=== PATIENT | female | born 1985 | race Caucasian/White ===

== ENCOUNTER 2018-05-05 04:06 | Emergency (ER) | payer SELFPAY ==
[2018-05-05 04:08] VITALS: BP 155/115
--- NOTE | 2018-05-05 04:15 | ER Report ---
History and Physical Time Seen By MD: 04:11 HPI/ROS CHIEF COMPLAINT: Suicidal ideation/attempt HISTORY OF PRESENT ILLNESS: 33 year-old female traveling back from [place] to [place] after a for her [id number]. Patient was drinking tonight. Her and her got into an argument. They broke up. Patient took a pocket knife from her 's pants and went into the bathroom, stating she was going to end it. She was found with superficial cuts on her left arm. Patient has a reported history of 2 weeks ago locking herself in the bathroom attempting to drown herself in the bathtub per . Patient did not receive treatment at that time. Patient admits to some alcohol last night but denies drugs. Patient with a history of ADHD on Vyvanse. Patient reports her last tetanus vaccine was 2013. REVIEW OF SYSTEMS: Respiratory: No cough, no dyspnea. Cardiovascular: No chest pain, no palpitations. Gastrointestinal: No vomiting, no abdominal pain. Musculoskeletal: No back pain. Allergies: Coded Allergies: codeine (Verified Allergy, Mild, 05/05/18) morphine (Verified Allergy, Mild, 05/05/18) Home Meds Reported Medications Cetirizine Hcl (ZYRTEC) 10 Mg Capsule, 10 MG PO QDAY, CAPSULE 05/05/18 Albuterol Sulfate 90 Mcg/Act (PROAIR HFA 90 MCG/ACT) 8.5 Gm Hfa.aer.ad, 1-2 PUFF IH 3-4XD, INHALER 05/05/18 Montelukast Sodium (SINGULAIR) 10 Mg Tablet, 1 TAB PO QDAY, TAB 05/05/18 Lisdexamfetamine Dimesylate (VYVANSE) 20 Mg Capsule, 20 MG PO QDAY, CAPSULE 05/05/18 Past Medical/Surgical History Asthma, allergies ADHD, denies previous history of mental health disorder Reviewed Nurses Notes: Yes Old Medical Records Reviewed: Yes Constitutional Vital Sign - Last 24 Hours 05/05/18 04:08 Temp 97.7 Pulse 113 Resp 20 B/P (MAP) 155/115 Pulse Ox 97 O2 Delivery Room Air Physical Exam Vital signs stable, mild tachycardia, mild elevation of blood pressure, afebrile , pulse ox normal General Appearance: The patient is alert, has no immediate need for airway protection and no current signs of toxicity. HEENT: Pupils equal and round no injection. Oropharynx without redness or exudate, mucous membranes are moist Respiratory: Chest is non tender, lungs are clear to auscultation. Cardiac: regular rate and rhythm Gastrointestinal: Abdomen is soft and non tender, no masses, bowel sounds normal. Musculoskeletal: Neck: Neck is supple and non tender. No thyromegaly Extremities have full range of motion and are non tender. There are numerous approximately 20 superficial transverse lacerations on both surfaces of the left forearm none requiring sutures Skin: No rashes or lesions. DIFFERENTIAL DIAGNOSIS: After history and physical exam differential diagnosis was considered for depression including functional and major depression, situational depression, medication side effect, suicidal ideation, suicidal attempt , drugs and alcohol abuse. Medical Decision Making Data Points Result Diagram: 05/05/1844905/05/18449 Laboratory Hematology Test 05/05/18 04:25 05/05/18 04:50 Urine Color Straw Urine Clarity Clear Urine pH 5.0 pH (4.8-9.5) Urine Specific [place] 1.004 Urine Protein Negative mg/dL (NEGATIVE) Urine Glucose (UA) Negative mg/dL (NEGATIVE) Urine Ketones Negative mg/dL (NEGATIVE) Urine Blood Small (NEGATIVE) Urine Nitrite Negative (NEGATIVE) Urine Bilirubin Negative (NEGATIVE) Urine Urobilinogen Negative mg/dL (0.2-1.9) Urine Leukocyte Esterase Negative (NEGATIVE) Urine RBC <1 /HPF (0-2/HPF) Urine WBC <1 /HPF (0-5/HPF) Urine Squamous Epithelial Cells Moderate /LPF (</=FEW) Urine Bacteria Negative /HPF (NONE-FEW) Urine Mucus None /HPF (NONE-FEW) Urine HCG, Qualitative Negative (NEGATIVE) Urine Opiates Screen Negative Urine Barbiturates Screen Negative Ur Tricyclic Antidepressants Screen Negative Urine Phencyclidine Screen Negative Urine Amphetamines Screen Positive Urine Benzodiazepines Screen Negative Urine Cocaine Screen Negative Urine Cannabinoids Screen Negative Red Blood Count 4.64 M/uL (4.17-5.56) Mean Corpuscular Volume 95.3 fL (80.0-96.0) Mean Corpuscular Hemoglobin 33.7 pg (26.0-33.0) Mean Corpuscular Hemoglobin Concent 35.3 g/dL (32.0-36.0) Red Cell Distribution Width 12.1 % (11.5-14.5) Mean Platelet Volume 7.5 fL (7.2-11.1) Neutrophils (%) (Auto) 51.8 % (39.4-72.5) Lymphocytes (%) (Auto) 40.4 % (17.6-49.6) Monocytes (%) (Auto) 5.0 % (4.1-12.4) Eosinophils (%) (Auto) 1.6 % (0.4-6.7) Basophils (%) (Auto) 1.2 % (0.3-1.4) Nucleated RBC Relative Count (auto) 0.0 /100WBC Neutrophils # (Auto) 3.3 K/uL (2.0-7.4) Lymphocytes # (Auto) 2.6 K/uL (1.3-3.6) Monocytes # (Auto) 0.3 K/uL (0.3-1.0) Eosinophils # (Auto) 0.1 K/uL (0.0-0.5) Basophils # (Auto) 0.1 K/uL (0.0-0.1) Nucleated RBC Absolute Count (auto) 0.00 K/uL Sodium Level 146 mmol/L (137-145) Potassium Level 3.9 mmol/L (3.5-5.0) Chloride Level 106 mmol/L (98-107) Carbon Dioxide Level 24 mmol/L (22-31) Blood Urea Nitrogen 8 mg/dl (7-18) Creatinine 0.50 mg/dl (0.52-1.04) Glomerular Filtration Rate Calc > 60.0 Random Glucose 108 mg/dl (75-110) Calcium Level 9.1 mg/dl (8.4-10.2) Magnesium Level 2.0 mg/dl (1.7-2.2) Total Bilirubin 0.2 mg/dl (0.2-1.3) Aspartate Amino Transf (AST/SGOT) 23 U/L (0-35) Alanine Aminotransferase (ALT/SGPT) 23 U/L (0-56) Alkaline Phosphatase 62 U/L (0-126) Total Protein 7.5 g/dl (6.3-8.2) Albumin 4.6 g/dl (3.5-5.0) Salicylates Level < 10 mg/L Salicylate Last Dose Date unk Acetaminophen Level < 10 ug/ml Serum Alcohol 129 mg/dl Chemistry Test 05/05/18 04:25 05/05/18 04:50 Urine Color Straw Urine Clarity Clear Urine pH 5.0 pH (4.8-9.5) Urine Specific [place] 1.004 Urine Protein Negative mg/dL (NEGATIVE) Urine Glucose (UA) Negative mg/dL (NEGATIVE) Urine Ketones Negative mg/dL (NEGATIVE) Urine Blood Small (NEGATIVE) Urine Nitrite Negative (NEGATIVE) Urine Bilirubin Negative (NEGATIVE) Urine Urobilinogen Negative mg/dL (0.2-1.9) Urine Leukocyte Esterase Negative (NEGATIVE) Urine RBC <1 /HPF (0-2/HPF) Urine WBC <1 /HPF (0-5/HPF) Urine Squamous Epithelial Cells Moderate /LPF (</=FEW) Urine Bacteria Negative /HPF (NONE-FEW) Urine Mucus None /HPF (NONE-FEW) Urine HCG, Qualitative Negative (NEGATIVE) Urine Opiates Screen Negative Urine Barbiturates Screen Negative Ur Tricyclic Antidepressants Screen Negative Urine Phencyclidine Screen Negative Urine Amphetamines Screen Positive Urine Benzodiazepines Screen Negative Urine Cocaine Screen Negative Urine Cannabinoids Screen Negative White Blood Count 6.3 k/uL (4.5-11.0) Red Blood Count 4.64 M/uL (4.17-5.56) Hemoglobin 15.6 g/dL (12.0-16.0) Hematocrit 44.3 % (34.0-47.0) Mean Corpuscular Volume 95.3 fL (80.0-96.0) Mean Corpuscular Hemoglobin 33.7 pg (26.0-33.0) Mean Corpuscular Hemoglobin Concent 35.3 g/dL (32.0-36.0) Red Cell Distribution Width 12.1 % (11.5-14.5) Platelet Count 253 K/uL (150-450) Mean Platelet Volume 7.5 fL (7.2-11.1) Neutrophils (%) (Auto) 51.8 % (39.4-72.5) Lymphocytes (%) (Auto) 40.4 % (17.6-49.6) Monocytes (%) (Auto) 5.0 % (4.1-12.4) Eosinophils (%) (Auto) 1.6 % (0.4-6.7) Basophils (%) (Auto) 1.2 % (0.3-1.4) Nucleated RBC Relative Count (auto) 0.0 /100WBC Neutrophils # (Auto) 3.3 K/uL (2.0-7.4) Lymphocytes # (Auto) 2.6 K/uL (1.3-3.6) Monocytes # (Auto) 0.3 K/uL (0.3-1.0) Eosinophils # (Auto) 0.1 K/uL (0.0-0.5) Basophils # (Auto) 0.1 K/uL (0.0-0.1) Nucleated RBC Absolute Count (auto) 0.00 K/uL Glomerular Filtration Rate Calc > 60.0 Calcium Level 9.1 mg/dl (8.4-10.2) Magnesium Level 2.0 mg/dl (1.7-2.2) Total Bilirubin 0.2 mg/dl (0.2-1.3) Aspartate Amino Transf (AST/SGOT) 23 U/L (0-35) Alanine Aminotransferase (ALT/SGPT) 23 U/L (0-56) Alkaline Phosphatase 62 U/L (0-126) Total Protein 7.5 g/dl (6.3-8.2) Albumin 4.6 g/dl (3.5-5.0) Salicylates Level < 10 mg/L Salicylate Last Dose Date unk Acetaminophen Level < 10 ug/ml Serum Alcohol 129 mg/dl Toxicology Test 05/05/18 04:25 05/05/18 04:50 Urine Opiates Screen Negative Urine Barbiturates Screen Negative Ur Tricyclic Antidepressants Screen Negative Urine Phencyclidine Screen Negative Urine Amphetamines Screen Positive Urine Benzodiazepines Screen Negative Urine Cocaine Screen Negative Urine Cannabinoids Screen Negative Salicylates Level < 10 mg/L Salicylate Last Dose Date unk Acetaminophen Level < 10 ug/ml Serum Alcohol 129 mg/dl Urinalysis Test 05/05/18 04:25 Urine Color Straw Urine Clarity Clear Urine pH 5.0 pH (4.8-9.5) Urine Specific [place] 1.004 Urine Protein Negative mg/dL (NEGATIVE) Urine Glucose (UA) Negative mg/dL (NEGATIVE) Urine Ketones Negative mg/dL (NEGATIVE) Urine Blood Small (NEGATIVE) Urine Nitrite Negative (NEGATIVE) Urine Bilirubin Negative (NEGATIVE) Urine Urobilinogen Negative mg/dL (0.2-1.9) Urine Leukocyte Esterase Negative (NEGATIVE) Urine RBC <1 /HPF (0-2/HPF) Urine WBC <1 /HPF (0-5/HPF) Urine Squamous Epithelial Cells Moderate /LPF (</=FEW) Urine Bacteria Negative /HPF (NONE-FEW) Urine Mucus None /HPF (NONE-FEW) Urine HCG, Qualitative Negative (NEGATIVE) ED Course/Re-evaluation ED Course Patient was admitted to an examination room. H&P was done. The differential diagnoses was considered. On clinical examination. Patient's alert and responsive. Patient has numerous superficial cutting moseley on her left arm. None of them appear to require suturing. Her tetanus status is updated. Diagnostic evaluation is undertaken. Her tox screen is positive for amphetamines, likely secondary to her Vyvanse. Patient is relatively high risk. She has a history 2 weeks ago of a similar suicidal gesture. Tidal 25 evaluation is completed. I think patient is very high risk in the senior care needs to be upheld. 05/05/2018 5:25:50 am case was discussed with Dr. Lovett psychiatrist on-call, who accepts the patient to [facility]. Decision to Disposition Date: May 05, 2018 Decision to Disposition Time: 04:32 Depart Departure Latest Vital Signs Vital Signs Date Time Temp Pulse Resp B/P (MAP) Pulse Ox O2 Delivery O2 Flow Rate FiO2 05/05/18 04:08 97.7 113 20 155/115 97 Room Air Impression: Primary Impression: Suicidal ideation Additional Impressions: Alcohol intoxication Deliberate self-cutting Condition: Improved Disposition: XFER TO [facility] Title 25 Evaluation Date of Report: May 05, 2018 Examiner: Dr. Koko Lam Patient Detained By: Law Enforcement 24hr Mental Health Eval By: Dr. Koko Lam Date Patient Detained: May 05, 2018 Time Patient Detained: 04:05 Date Custodial Expires: May 10, 2018 Time Custodial Expires: 04:05 Legal Status: Police Hold: No Legal Status: Relationship: Legal Status: Residence: Other Assessment Data Provided By: Patient, Law Enforcement, Family Member(s) Chief Complaint: Suicidal ideation/attempt HPI/ROS: 33-year-old female staying in a hotel in town with her . They had an argument after consuming alcohol. Patient. Patient grabbed her 's pocket knife out of his pants and went into the bathroom, told him that she was going to end it. She proceeded to cut some superficial moseley into her arm. reports that 2 weeks ago. She did a similar behavior, but attempted to drown herself in a bathtub full of water with a possible overdose. Patient at this time is denying suicidal ideation after being brought to the ER. called 911 to the hotel room. Patient admits to just a couple of alcoholic drinks earlier denies other drug ingestion. Risk Formulation: Patient did self cutting tonight which is a high risk behavior. Current Dangerous Risk Assess: Current Suicide Ideation Current Risk Summary: Moderate to high risk emergency senior care will be upheld Past Dangerous Risk Assess: Suicide Ideation-last 6mo Problem Qualifiers Additional Impressions: Alcohol intoxication Complication of substance-induced condition: uncomplicated Qualified Codes: F10.920 - Alcohol use, unspecified with intoxication, uncomplicated KOKO LAM DO May 05, 2018 04:15
[2018-05-05] MEDS ORDERED: CETI10CA8 PO (04:21)
[2018-05-05] MEDS ORDERED: MONT10TA PO (04:21)
[2018-05-05] MEDS ORDERED: ALBU8.5H IH (04:21)
[2018-05-05] MEDS ORDERED: LISD20CA4 PO (04:21)
[2018-05-05] MEDS ORDERED: DIPHTH/TETANUS/ACEL. PERTUSSIS IM ONLY ONE (04:50)
[2018-05-05 05:06] LABS: PLATELET COUNT, AUTOMATED 253 K/uL (150-450)
== END 2018-05-05 06:00 ==
LOC: ER 04:08
DX: T14.91XA Suicide attempt, initial encounter (principal); F15.10 Other stimulant abuse, uncomplicated; F10.920 Alcohol use, unspecified with intoxication, uncomplicated; X78.1XXA Intentional self-harm by knife, initial encounter
CPT/HCPCS: 36415; 80305; 80320; 80329; 81001; 81025; 82040; 82247; 82310; 82374; 82435; 82565; 82947; 83735; 84075; 84132; 84155; 84295; 84443; 84450; 84460; 84520; 85025; 99284

== ENCOUNTER 2018-05-05 05:42 | Inpatient (IN) | payer SELFPAY ==
[~2018-05-05 05:42] MED LIST: ALBU8.5H IH; CETI10CA8 PO; LISD20CA4 PO; MONT10TA PO
[2018-05-05] MEDS ORDERED: NICOTINE INH SYSTEM 10 MG/INH INH PRN (06:20)
[2018-05-05] MEDS ORDERED: ACETAMINOPHEN 325 MG TAB PO PRN (06:20)
[2018-05-05] MEDS ORDERED: MAG HYD/AL HYD/SIMETH 30ML UDC PO PRN (06:20)
[2018-05-05 06:32] VITALS: BP 141/98
[2018-05-05] MEDS: MULTIVITAMINS TAB PO SCH (09:00)
--- NOTE | 2018-05-05 10:56 | BHS - Psychiatric Evaluation ---
ER - Title 25 MHE Evaluation Title 25 Evaluation Patient Detained By: Physician (Dr. clarissa lopez), Law Enforcement Referral Source: Professional: Physician and law enforcement Date Patient Detained: May 05, 2018 Time Patient Detained: 04:05 Date Group Home Expires: May 10, 2018 Time Group Home Expires: 04:05 Legal Status: Police Hold: No Legal Status: Residence: Other Assessment Data Provided By: Patient, Law Enforcement, Other Source ([facility] Professional ) HPI/ROS: From Dr. Clarissa Lopez, ER Physician, "Patient has numerous superficial cutting moseley on her left arm. None of them appear to require suturing. 33-year-old female staying in a hotel in town with her . They had an argument after consuming alcohol. Patient grabbed her 's pocket knife out of his pants and went into the bathroom, told him that she was going to end it. reports that 2 weeks ago. She did a similar behavior, but attempted to drown herself in a bathtub full of water with a possible overdose. Patient at this time is denying suicidal ideation after being brought to the ER. called 911 to the hotel room. Patient admits to just a couple of alcoholic drinks earlier denies other drug ingestion. Her tox screen is positive for amphetamines, likely secondary to her Vyvanse. Patient is relatively high risk. She has a history 2 weeks ago of a similar suicidal gesture. Title 25 evaluation is completed. I think patient is very high risk in the custodial needs to be upheld. Admit due to SI or Attempt: Yes Suicide Plan: Has Plan with Access Alcohol or Drugs Involved: Yes (Alcohol and amphetamines) Is Patient Info Reliable: No (Patient denies suicidal ideation that was witnessed just previously.) Is Collateral Info Reliable: Yes (3-81 and patient's concerned .) Current Home Psych Meds: Reports none. Mental Status Exam General Appearance: Well Groomed, Good Eye Contact, Cooperative, Polite, Good Interaction Speech: Clear Mood: Dysthmic/Depressed (Very tearful) Affect: Flat Thought Process: Goal Directed Thought Content: Suicidal Ideation (Denies) Cognition: Alert & Oriented-Person, Alert & Oriented-Place Memory: Immediate, Recent Insight Judgment: Poor Sleep: Hypersomnia Hallucinations: Denies Delusions: Denies Current Risk & History Current Dangerous Risk Assessm: Current Suicide Ideation (As recently as this morning.) Past Dangerous Risk Assessm: Self-Injurious Behaviors (Collateral report from is patient was cutting in a bathtub two weeks ago.) Sequelae of Substance Abuse: Patient denied drug ingestion but was positive in her toxicity screen for amphetamines. Previous Suicide Attempt: Past - Low Lethality (Patient report similar suicidal behaviors two weeks ago.) Previous Psychiatric Illness: No (Unknown at this time.) Previous Psychiatric Treatment: No (Unknown at this time) Risk Assessment & Disposition Evaluated Risk Assessment: Dr. Lopez indicated he believed risk to be high. Patient self harm behavior while intoxicated highly lethal, and she needs supports in place. Meets Mental Illness Req.: Yes Meets Dangerousness Req.: Yes Emergency Group Home to be: Upheld Decision Comment: Please see Dr. Lopez's HPI above. Date of Decision: May 05, 2018 Time of Decision: 04:05 Patient is Medically Stable at: Yes Disposition: [facility]RISS ISAACS LPC May 05, 2018 10:56
[2018-05-05 13:25] VITALS: BP 139/88
[2018-05-05] MEDS ORDERED: ALBUTEROL 8 GM INHALER INH PRN (13:25)
[2018-05-05] MEDS: MONTELUKAST SODIUM 10 MG TAB PO SCH (15:28)
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
[2018-05-05 23:54] VITALS: BP 129/73
[2018-05-06] MEDS: MULTIVITAMINS TAB PO SCH (08:17)
[2018-05-06] MEDS: MONTELUKAST SODIUM 10 MG TAB PO SCH (08:53)
[2018-05-06 09:15] VITALS: BP 146/83
[2018-05-06] MEDS: FLUoxetine HCL 20 MG CAP PO SCH (09:52)
--- NOTE | 2018-05-06 16:05 | BHS Progress Note ---
S - Subjective Progress Notes Subjective Pt seen in conference room with staff. Pt feeling "much better" today. She and had a long talk last night, both tearful, both deciding that they want to quit alcohol together. We talked a lot about AA, out-patient therapy, coping with urges to drink, couples therapy etc. Pt highly motivated. Pt also reporting long-standing hx of anxiety and dysphoric mood. She would like to try Prozac, and we agreed to a trial of 20 mg q am. Pt denies SI. Tentative discharge in AM if she continues to be stable and free of SI. Suicidal Ideation: None Homicidal Ideation: None S - Objective Physical Exam Vital Signs Vital Signs 05/05/18 05/06/18 23:54 09:15 Temp 97.4 Pulse 74 Resp 15 B/P (MAP) 146/83 (104) Pulse Ox 93 O2 Delivery Room Air Muscle Strength and Tone: WNL Gait and Station: Steady [facility] Medications Reviewed: Side Effects, Benefits of Medication, Risks Allergies Reviewed: Yes Mental Status Exam General Appearance: Casual, Well Groomed, Good Eye Contact, Cooperative, Polite , Good Interaction Speech: Clear, Spontaneous, Normal Rate, Normal Rhythm, Normal Volume, Normal Tone Mood: Dysthmic/Depressed (better today but still some dysphoria) Affect: Calm, Flat, Anxious Thought Process: Organized, Logical, Goal Directed Thought Content: No Suicidal Ideation, No Homicidal Ideation, No Delusions, No Auditory Halllucinations, No Visual Hallucinations, No Thought Broadcasting, No Ideas of Reference, No Obsessions, No Compulsions, No Other Sensorium: Clear Cognition: Alert & Oriented-Person, Alert & Oriented-Place, Alert & Oriented- Time, [id number] Memory: Immediate, Recent, Remote Intelligence: Average Insight Judgment: Fair [facility] Assessment and Plan [id number] Encounter Date: May 06, 2018 [id number] Encounter Time: 09:00 [facility] Plan: Admit to Unit, Necessary Precautions, Individual/Group Therapy, Admin /Titrate Meds, Educate Patient Tobacco Medications: Started Multpiple Antipsychotics Used: No Problems: (1) Alcohol use disorder, severe, dependence (2) Substance induced mood disorder (3) Partner relational problem STEFFI ARTEAGA MD May 06, 2018 16:05
[2018-05-06 21:48] VITALS: BP 128/79
[2018-05-07 05:56] VITALS: BP 116/72
[2018-05-07] MEDS: MULTIVITAMINS TAB PO SCH (08:29)
[2018-05-07] MEDS: FLUoxetine HCL 20 MG CAP PO SCH (08:29)
[2018-05-07] MEDS: MONTELUKAST SODIUM 10 MG TAB PO SCH (08:29)
[2018-05-07] MEDS ORDERED: FLUO-202 PO (09:33)
[2018-05-07 09:48] VITALS: BP 130/80
[2018-05-07] MEDS ORDERED: MELA3TAB31 PO (10:43)
[2018-05-07] MEDS ORDERED: NIC10R INH (10:44)
[2018-05-07] MEDS ORDERED: MULT-859 PO (10:44)
--- NOTE | 2018-05-07 14:35 | BHS Discharge Summary ---
[facility] Discharge Summary Hlms-iu-Lqux Encounter Date: May 07, 2018 Otqb-br-Dfno Encounter Time: 09:00 Reason-Hosp/Final Diag (DSM-V): (1) Alcohol use disorder, severe, dependence Hospital Course & Plan: Pt was admitted to [facility] on escape and suicide precautions. Vitals were monitored but there was not evidence of physical alcohol withdrawal enough to warrant any medical detox with benzo's. Pt was very tearful on the first day. By second day affect was bright-- she and had a long talk and both have decided to quit drinking together-- we assisted them with psychoeducation regarding same. Both have previous experience with AA and verbalize desire to return to regular meetings once they return home. Pt reported symptoms consistent with mild ongoing depression and anxiety, and she requested to restart Prozac 20 mg, which was well tolerated. We advised pt to go off vyvanse since ADHD symptoms were mild at best, since she made it through HS and college without stimulant therapy, and since vyvanse can fuel some anxiety and/or urges to use alcohol. She denied SI throughout her hospital stay. By 05/07/18 she was stable and ready for discharge after a team meeting which her attended. Appointment for follow up was made at [facility] clinic, and they plan to attend AA meetings as well. (2) Substance induced mood disorder (3) Partner relational problem Physical Exam Latest Vital Signs Vital Signs 05/07/18 09:48 Temp 98.1 Pulse 77 Resp 16 B/P (MAP) 130/80 (97) Pulse Ox 96 O2 Delivery Room Air Mental Status Exam General Appearance: Casual, Well Groomed, Good Eye Contact, Cooperative, Polite , Good Interaction Speech: Clear, Spontaneous, Normal Rate, Normal Rhythm, Normal Volume, Normal Tone Mood: Euthymic Affect: Full and Appropriate, Calm Thought Process: Organized, Logical, Goal Directed Thought Content: No Suicidal Ideation, No Homicidal Ideation, No Delusions, No Auditory Halllucinations, No Visual Hallucinations, No Thought Broadcasting, No Ideas of Reference, No Obsessions, No Compulsions, No Other Sensorium: Clear Cognition: Alert & Oriented-Person, Alert & Oriented-Place, Alert & Oriented- Time, Tymxz-[id number]-[id number] Memory: Immediate, Recent, Remote Intelligence: Average Insight Judgment: Good Departure Condition: Improved Discharge to: Home Discharge Instructions Home Meds Reported Medications Nicotine (NICOTROL) 10 Mg/Inh Ctr, 10 MG INH PRN Y for NICOTINE REPLACEMENT 05/07/18 Multivits,Ca,Minerals/Iron/Fa (THERA-M TABLET) 1 Each Tablet, 1 EACH PO DAILY 05/07/18 Melatonin (MELATONIN) 3 Mg Tablet, 6 MG PO QHS 05/07/18 Fluoxetine Hcl (PROZAC) 20 Mg Capsule, 20 MG PO QDAY, CAPSULE 05/07/18 Cetirizine Hcl (ZYRTEC) 10 Mg Capsule, 10 MG PO QDAY, CAPSULE 05/05/18 Albuterol Sulfate 90 Mcg/Act (PROAIR HFA 90 MCG/ACT) 8.5 Gm Hfa.aer.ad, 1-2 PUFF IH 3-4XD, INHALER 05/05/18 Montelukast Sodium (SINGULAIR) 10 Mg Tablet, 1 TAB PO QDAY, TAB 05/05/18 Discontinued Reported Medications Lisdexamfetamine Dimesylate (VYVANSE) 20 Mg Capsule, 20 MG PO QDAY, CAPSULE 05/05/18 Multpiple Antipsychotics Used: No Special Instructions: Discharge home. Follow up with outpatient therapy and medication management as recommended. STEFFI ARTEAGA MD May 07, 2018 14:35
[2018-05-07] MEDS ORDERED: MELATONIN 3 MG TAB PO SCH (21:00)
== END 2018-05-07 11:00 | disposition home or self-care (01) | DRG 897 ==
LOC: BHS 05:42
PROVIDERS: ADMIT Psychiatry & Neurology Psychiatry; ATTEND Psychiatry & Neurology Psychiatry
DX: F10.24 Alcohol dependence with alcohol-induced mood disorder (principal); F41.8 Other specified anxiety disorders; Y90.6 Blood alcohol level of 120-199 mg/100 ml; Z91.5 Personal history of self-harm; Z62.810 Personal history of physical and sexual abuse in childhood; Z63.4 Disappearance and death of family member; Z63.0 Problems in relationship with spouse or partner; Z91.410 Personal history of adult physical and sexual abuse; Z91.411 Personal history of adult psychological abuse
CPT/HCPCS: J3535